=== PATIENT | male | born 1965 | race Caucasian/White ===

== ENCOUNTER 2017-08-19 22:49 | Emergency (ER) | payer OTHER ==
[~2017-08-19] VITALS: Ht 170.2 cm; Wt 74.8 kg
[2017-08-19] MEDS ORDERED: ALBUTEROL SULFATE 2.5 MG/3 ML NEBU NEB ONE (23:15)
[2017-08-19] MEDS ORDERED: VENL150C2 PO (23:23)
[2017-08-19 23:35] LABS: BASOPHILS # (AUTO) 0.1 K/uL (0.0-8.0); BASOPHILS % (AUTO) 1.2 % (0.0-2.0); EOSINOPHILS # (AUTO) 0.5 K/uL (0.0-0.7); EOSINOPHILS % (AUTO) 4.6 % (0.0-7.0); HEMATOCRIT 42.7 % (40-50); HEMOGLOBIN 13.9 G/DL (14.0-18.0); LYMPHOCYTES # (AUTO) 0.7 K/UL (0.8-4.8); LYMPHOCYTES % (AUTO) 6.9 % (20.5-51.5); MEAN CORPUSCULAR HEMOGLOBIN 29.7 UUG (27.0-31.0); MEAN CORPUSCULAR HGB CONC 33 g/dL (32.0-37.0); MEAN CORPUSCULAR VOLUME 91.4 FL (82.0-92.0); MONOCYTES # (AUTO) 0.6 K/UL (0.1-1.30); MONOCYTES % (AUTO) 5.8 % (0.0-11.0); NEUTROPHILS # (AUTO) 8.3 K/UL (1.8-8.9); NEUTROPHILS % (AUTO) 81.5 % (38.5-71.5); PLATELET COUNT (AUTO) 193 K/UL (150-450); RED BLOOD CELL COUNT(AUTO) 4.66 MIL/UL (4.7-6.1); WHITE BLOOD COUNT (AUTO) 10.2 K/UL (4.0-11.2)
[2017-08-19] MEDS ORDERED: ALBUTEROL SULFATE 2.5 MG/3 ML NEBU ONE (23:47)
[2017-08-19 23:48] LABS: CREATININE 1.1 mg/dL (0.6-1.3); POTASSIUM 4.1 mmol/L (3.5-5.1)
--- NOTE | 2017-08-20 00:02 | NUR ---
Pt sts he is feeling better after his breathing treatment. Pt resting in position of comfort for self. No complaints at this time.
--- NOTE | 2017-08-20 00:05 | NUR ---
Pt taken off oxygen to see if able to tolerate per Dr. Klein. Pt then to have ABG after 30 mins without oxygen.
[2017-08-20] MEDS ORDERED: methylPREDNISolone SOD SUCC 125 MG/2 ML VIAL IV ONE (00:15)
[2017-08-20] MEDS ORDERED: methylPREDNISolone SOD SUCC 125 MG/2 ML VIAL ONE (00:33)
[2017-08-20 01:02] LABS: ABG TOTAL HEMOGLOBIN 14.1 G/dL (13.5-18.0); MetHb 0.1 % (0.0-1.5)
[2017-08-20 01:52] LABS: ABG BASE EXCESS -0.7 mmol/L; ABG HCO3 23.6 mmol/L; ABG PCO2 37.8 mmHg (35.0-45.0); ABG PH 7.413 (7.350-7.450); ABG PO2 66.5 mmHg (75.0-100.0); ABG SITE RIGHT BRACHIAL; O2Hb 92.4 % (94.0-97.0); VENT MODE ROOM AIR
--- NOTE | 2017-08-20 02:16 | NUR ---
Pt sts he is feeling better. Pt stable for discharge per Dr. Klein. IV dc'd, catheter intact. Drsg applied. No problems noted to site. Pt given ACI. Pt verbalized understanding of dc instructions. Pt ambulated out of ER with steady gait and ride home.
[2017-08-20 02:17] VITALS: BP 131/81
== END 2017-08-20 02:18 | disposition home or self-care (01) ==
LOC: ER 22:49
DX: J45.901 Unspecified asthma with (acute) exacerbation (principal); Z85.818 Personal history of malignant neoplasm of other sites of lip, oral cavity, and pharynx; Z98.890 Other specified postprocedural states
CPT/HCPCS: 36415; 36600; 71010; 80048; 84484; 85025; 85379; 85730; 93005; 94640; 96374; 99285; A4663; J2930; 70030-TC